=== PATIENT | female | born 1975 | race Caucasian/White ===

== ENCOUNTER → 2019-11-26 | Outpatient (CLI) | payer OTHER ==
--- NOTE | 2019-11-26 15:48 | RAD ---
Examination: BREAST BILATERAL History: Reason: CALLBACK BILAT / Spl. Instructions: / History: Comparison/Correlation: 05/10/2018 and 11/19/2019 screening exams Findings: Limited right breast ultrasound exam was performed. At the 10:00 region 6 cm from the nipple, there is a 0.5 cm x 0.5 cm x 0.2 cm tall well-circumscribed heterogeneously hypoechoic structure. Limited left breast ultrasound exams performed in the retroareolar origin. No mass or cyst is identified corresponding with the mammographic finding of 11/19/2019. Impression: BI-RADS Category 3-probably benign. Six-month follow-up right breast ultrasound exam is recommended. 6 month follow-up diagnostic left unilateral mammogram is recommended. Ultrasound of the left breast may be needed at that time. Mammography of the right breast may be needed at that time. Electronically signed by: Josiah Felder MD (11/26/2019 3:45 PM) [id number]
== END | disposition home or self-care (01) ==
LOC: US 14:47
DX: R92.2 Inconclusive mammogram (principal)
CPT/HCPCS: 76641

== ENCOUNTER → 2020-05-22 | Outpatient (CLI) | payer OTHER ==
--- NOTE | 2020-05-22 15:06 | RAD ---
EXAM: Left breast diagnostic mammogram with tomosynthesis; right breast sonogram. HISTORY: 44-year-old female presents for follow-up evaluation of asymmetry within the left breast dem onstrated on a prior mammograms and a small hypoechoic lesion within the right breast demonstrated on a prior sonogram. TECHNIQUE: Full-field digital craniocaudal and mediolateral oblique 2D and 3D tomosynthesis images of the left breast are obtained for evaluation. Computer aided detection was applied. Sonographic imagi ng of the right breast targeted to the site of prior abnormality was also performed. COMPARISON: 11/26/2019 and 11/19/2019 and 05/10/2018 BREAST PARENCHYMAL DENSITY: Level B - Scattered fibroglandular densities. FINDINGS: There is no new suspicious mass, microcalcification or region of architectural distortion. There are stable areas of asymmetry within the left breast. There is no new suspicious mammographic f inding. Sonographic imaging of the right breast demonstrates a stable circumscribed hypoechoic lesion with in ternal echoes at the 10:00 position 6 cm for the nipple measuring 5 x 5 x 2 mm. This demonstrates no internal blood flow, posterior shadowing or architectural distortion. No additional lesion is seen. IMPRESSION: 1. No new suspicious mammographic finding within the left breast. 2. Stable 5 mm hypoechoic lesion within the right breast at the 10:00 position, the appearance of whi ch favors a benign complicated cyst or benign fibrocystic lesion. This demonstrates no suspicious son ographic features. No new lesion is seen sonographically. 3. BI-RADS Category 2: Benign finding(s). RECOMMENDATION: Bilateral mammography in 6 months is recommended to correspond with the previously es tablished bilateral mammography interval. If your mammogram demonstrates that you have dense breast tissue, which could hide abnormalities, and if you have other risk factors for breast cancer that have been identified, you might benefit from s upplemental screening tests that may be suggested by your ordering physician. Dense breast tissue, i n and of itself, is a relatively common condition. This information is not provided to cause undue c oncern, but rather to raise your awareness and to promote discussion with your physician regarding th e presence of other risk factors, in addition to dense breast tissue. A report of your mammography re sults will be sent to you and your physician. You should contact your physician if you have any ques tions or concerns regarding this report. Mammography is a sensitive method for finding small breast cancers, but it does not detect them all a nd is not a substitute for careful clinical examination. A negative mammogram does not negate a clin ically suspicious finding and should not result in delay in biopsying a clinically suspicious abnorma lity. PQRS compliance statement - Patient information was entered into a reminder system with a target due date for the next mammogram. "Our facility is accredited by the [employer] Mammography [employer]." Electronically signed by: Jeanette Enrique MD (05/22/2020 3:04 PM) [id number]
== END ==
LOC: MAMMO 13:51
DX: R92.2 Inconclusive mammogram (principal)
CPT/HCPCS: 76641; 77065; G0279; 77061

== ENCOUNTER → 2021-04-06 | Outpatient (CLI) | payer OTHER ==
--- NOTE | 2021-04-06 14:39 | RAD ---
INDICATION: 45 years of age asymptomatic female patient presents for screening mammography. TECHNIQUE: Full field craniocaudal and mediolateral oblique images of both breasts were obtained usi ng digital technique with tomosynthesis and also analyzed with computer-aided detection software. COMPARISON: Prior mammographic imaging dating 11/19/2019, 05/22/2020, 05/10/2018, 12/22/2016 BREAST COMPOSITION: Category B: There are scattered fibroglandular densities. FINDINGS: Benign calcifications are present. The parenchymal pattern appears stable. No suspicious masses, microcalcifications or architectural distortion is present to suggest malignanc y in either breast. The visualized axillae are unremarkable. IMPRESSION: No mammographic evidence of malignancy. RECOMMENDATION: Annual screening mammography is recommended, unless clinically indicated sooner based on symptoms or change in physical exam. BIRADS 2: BENIGN This study was interpreted with the benefit of Computerized Aided Detection (CAD). Patient information is entered into the reminder system with a target due date for the next screening mammogram. Mammography is the most sensitive method for finding small breast cancers, but it does not detect the m all and is not a substitute for careful clinical examination. A negative mammogram does not negate a clinically suspicious finding and should not result in delay in biopsying a clinically suspicious a bnormality. "Our facility is accredited by the [employer] Mammography [employer]." Electronically signed by: Pradeep Horowitz MD (04/06/2021 2:37 PM) [id number]
== END ==
LOC: MAMMO 08:54
PROVIDERS: ATTEND Internal Medicine
DX: Z12.31 Encounter for screening mammogram for malignant neoplasm of breast (principal)
CPT/HCPCS: 77063; 77067